=== PATIENT | female | born 1975 | race Caucasian/White ===

== ENCOUNTER 2016-11-18 13:38 | Outpatient (CLI) | payer OTHER ==
[2016-11-18] MEDS ORDERED: IOHEXOL 50 ML IV ONE (14:04)
== END 2016-11-18 16:00 | disposition home or self-care (01) ==
LOC: SRD 13:38
PROVIDERS: ATTEND Specialist
DX: N97.9 Female infertility, unspecified (principal); N92.6 Irregular menstruation, unspecified
CPT/HCPCS: 74740; C1751; Q9967